=== PATIENT | male | born 2000 | race Caucasian/White ===

== ENCOUNTER 2023-07-24 14:13 | Emergency (ER) | payer BC, SELFPAY ==
[2023-07-24 14:21] VITALS: BP 137/86; PULSE 74; TEMP 37.2; O2SAT 97; BMI 28.5
--- NOTE | 2023-07-24 15:06 | ED.GENADUL1 ---
HPI HPI - General Adult General Chief complaint: Headache Stated complaint: HEAD PRESSURE Time Seen by Provider: 07/24/23 15:06 Source: patient Mode of arrival: walk-in Limitations: no limitations History of Present Illness HPI narrative: Patient is a 22-year-old male who presents to the emergency department with persistent upper respiratory symptoms of headache, sinus pressure, sore throat and swollen tonsils. He was seen at urgent care 5 days ago for the symptoms, he was strep and COVID-negative but the provider started him on amoxicillin for the tonsillitis. He continues to have symptoms although his fevers have resolved. He has had no vomiting. He reports earlier in the week he had temperatures as high as 103.0 Fahrenheit. He was prescribed amoxicillin with no other medications. No sick contacts in the home. Patient significant other at bedside states that she looked up the symptoms online and they are concerned he has mono. Related Data Previous Rx's ?Medication ?Instructions ?Recorded dexamethasone 4 mg tablet 4 mg PO BID 5 days #10 tabs 07/24/23 Allergies Allergy/AdvReac Type Severity Reaction Status Date / Time No Known Drug Allergies Allergy Verified 07/24/23 14:24 Opioid HPI Opioid Management Most Recent Opioid Data: Last ED Pain Assessment 07/24/23 15:40 Review of Systems ROS Constitutional Reports: fever; Denies: chills Eyes Denies: change in vision Ears, nose, mouth, and throat Reports: throat pain and throat swelling Cardiovascular Denies: chest pain Respiratory Denies: shortness of breath or cough Gastrointestinal Denies: nausea, vomiting or diarrhea Integumentary/Breast Denies: rash Neurological Reports: headache Hematologic/Lymphatic Denies: easy bruising or easy bleeding Exam Narrative Exam Narrative: Gen.: Awake, alert, in no distress Head: Normocephalic, atraumatic ENT: Moist mucous membranes, Bilateral TMs clear. Pharyngeal erythema with moderate tonsillar edema that is symmetric. Exudates noted with uvula midline. Airway widely open and patent. Clear speech. No trismus or drooling. No redness or swelling under the tongue. Respiratory: No respiratory distress, lungs clear bilaterally Cardio: Regular rate and rhythm Extremities: Moves extremities equally Psych: Normal mood and affect Neuro: No focal neuro deficit Skin: Warm, dry, intact Constitutional Vital Signs, click to edit/add: Last Vital Signs Temp 99.0 F 07/24/23 14:21 Pulse 74 07/24/23 14:21 Resp 16 07/24/23 14:21 BP 137/86 07/24/23 14:21 Pulse Ox 97 07/24/23 14:21 O2 Del Method Room Air 07/24/23 14:21 Course Vital Signs Vital signs: Vital Signs Temperature 99.0 F 07/24/23 14:21 Pulse Rate 74 07/24/23 14:21 Respiratory Rate 16 07/24/23 14:21 Blood Pressure 137/86 07/24/23 14:21 Pulse Oximetry 97 07/24/23 14:21 Oxygen Delivery Method Room Air 07/24/23 14:21 Temperature 99.0 F 07/24/23 14:21 Pulse Rate 74 07/24/23 14:21 Respiratory Rate 16 07/24/23 14:21 Blood Pressure 137/86 07/24/23 14:21 Pulse Oximetry 97 07/24/23 14:21 Oxygen Delivery Method Room Air 07/24/23 14:21 Medical Decision Making MDM Narrative Medical decision making narrative: Strep and mono testing is negative. Patient with normal vital signs in the emergency department. He is encouraged to finish the amoxicillin, there is no evidence of peritonsillar abscess at this time. Patient will be placed on Decadron for home. Follow-up with PCP and return to the emergency department if symptoms change or worsen. ? SUPERVISED APC VISIT, PHYSICIAN ATTESTATION: Based on the medical record the care appears appropriate. ? Medical Records Medical records reviewed: Yes I reviewed the patient's medical records Lab Data Lab results reviewed: Yes I reviewed the patient's lab results Labs: Lab Results 07/24/23 07/24/23 Range/Units 15:26 15:37 Monoscreen Negative (NEGATIVE) Streptococcus Screen Negative Discharge Plan Discharge Stand Alone Forms: Portal Instructions Chief Complaint: Headache Clinical Impression: Acute tonsillitis Patient Disposition: Home, Self-Care Time of Disposition Decision: 16:09 Condition: Good Prescriptions / Home Meds: New dexamethasone 4 mg tablet 4 mg PO BID 5 Days Qty: 10 0RF Print Language: Japanese Instructions: Tonsillitis (ED) Referrals: Physician,Non-Staff, MD [Primary Care Provider] - 1 week
[2023-07-24] MEDS: DEXAMETHASONE SOD PHOS 10 MG/ML VIAL PO (15:36)
[2023-07-24 15:49] LABS: Internal Control Within Normal Limits; Mono Screen NEGATIVE (NEGATIVE)
[2023-07-24 16:02] LABS: Strep A Antigen Screen Negative
[2023-07-24 16:03] LABS: Internal Control Within Normal Limits
== END 2023-07-24 16:21 | disposition home or self-care (01) ==
PROVIDERS: Physician Assistant; Emergency Provider Student in an Organized Health Care Education/Training Program
DX: J03.90 Acute tonsillitis, unspecified (principal)
CPT/HCPCS: 86308; 87070; 87880; 99284; J1100